=== PATIENT | male | born 1955 | race Caucasian/White ===

== ENCOUNTER 2021-11-30 12:28 | Emergency (ER) | payer MEDICARE ==
[2021-11-30] MEDS ORDERED: Midazolam HCl 2 mg/2 ml Vial ONE (14:42)
== END 2021-11-30 17:23 ==
LOC: ERS 12:28
DX: R33.9 Retention of urine, unspecified (principal); I10 Essential (primary) hypertension; F17.210 Nicotine dependence, cigarettes, uncomplicated
CPT/HCPCS: 51702; 96374; J2250

== ENCOUNTER 2022-11-05 08:36 | Inpatient (IN) | payer MEDICARE ==
[2022-11-05] MEDS ORDERED: Iopamidol-370 76% 500 ML 1 ML ONE (08:40)
[2022-11-05] MEDS ORDERED: Ipratropium/Albuterol 3 ML NEB ONE ×2 (08:47→14:26)
[2022-11-05 08:59] LABS: #Basophils 0.1 thou/uL (0.0-0.2); #Eosinphils 1.2 thou/uL (0.0-0.7); #Lymphocytes 1.3 thou/uL (1.20-3.40); #Monocytes 0.6 thou/uL (0.11-0.59); #Neutrophils 7.5 thou/uL (1.40-6.50); %Basophils 0.5 % (0.0-1.0); %Eosinophils 10.8 % (0.0-10.0); %Lymphocytes 12.5 % (21.0-51.0); %Neutrophils 70.2 % (42.0-75.0); Hemoglobin 16.2 g/dL (14.0-18.0); Mean Corpuscular HGB CONC 32.4 g/dL (32.0-36.0); Mean Corpuscular Hemoglobin 30.2 pg (27.0-31.0); Mean Platelet Volume 6.6 fL (7.4-10.4); Platelet Count 203 10x3/uL (130-400); RBC Distribution Width 12.9 % (11.5-14.5); Red Blood Cell (RBC) Count 5.35 mill/uL (4.70-6.10); White Blood Cell (WBC) Count 10.7 10x3/uL (4.8-10.8)
[2022-11-05] MEDS ORDERED: methylPREDNISolone Sod Succ/PF 125 MG/2 ML VIAL ONE (09:06)
[2022-11-05 09:09] LABS: INR-International Normal Ratio 0.9; Prothrombin Time 12.6 sec (12.0-14.7)
[2022-11-05 09:10] LABS: PTT 34.2 sec (22.9-36.1)
[2022-11-05 09:20] LABS: ALT (SGPT) 16 U/L (8-55); AST (SGOT) 20 U/L (5-34); Albumin 4.7 g/dL (3.4-4.8); Alkaline Phosphatase 131 U/L (40-110); Anion Gap 16 mmol/L (10-20); BUN (Urea Nitrogen) 20 mg/dL (8.4-25.7); Bilirubin, Total 1.4 mg/dL (0.2-1.2); Calc. Creatinine Clearance 0 mL/min (70-130); Calcium 9.8 mg/dL (7.8-10.44); Carbon Dioxide 25 mmol/L (23-31); Chloride 103 mmol/L (98-107); Estimated GFR 49; Globulin 3.9 g/dL (2.4-3.5); Glucose 113 mg/dL (80-115); Potassium 4.7 mmol/L (3.5-5.1); Protein, Total 8.6 g/dL (5.8-8.1); Sodium 139 mmol/L (136-145)
[2022-11-05 10:02] LABS: SARS-CoV-2 NAA Rapid Test Not Detected (NotDetected)
[2022-11-05] MEDS ORDERED: Acetaminophen 325 MG TAB PO PRN (15:09)
[2022-11-05] MEDS ORDERED: Ondansetron ODT 4 MG TAB PO PRN (15:09)
[2022-11-05] MEDS ORDERED: Ipratropium/Albuterol 3 ML NEB NEB PRN (15:18)
[2022-11-05] MEDS ORDERED: Azithromycin 250 MG TAB PO SCH (16:30)
[2022-11-05 17:45] VITALS: BMI 33.9
[2022-11-05] MEDS ORDERED: cefTRIAXone\\ROCEPHIN 1 GM in Sodium Chloride 0.9% 100 ML IVPB SCH (18:00)
[2022-11-05] MEDS: Nicotine 14 MG PATCH TD SCH (18:29)
[2022-11-05] MEDS: Ipratropium/Albuterol 3 ML NEB NEB SCH ×2 (19:06→22:29)
[2022-11-06] MEDS: Ipratropium/Albuterol 3 ML NEB NEB SCH ×6 (02:10→23:15)
[2022-11-06 07:37] LABS: ALT (SGPT) 12 U/L (8-55); AST (SGOT) 14 U/L (5-34); Albumin 3.6 g/dL (3.4-4.8); Alkaline Phosphatase 101 U/L (40-110); Anion Gap 13 mmol/L (10-20); BUN (Urea Nitrogen) 35 mg/dL (8.4-25.7); Bilirubin, Total 0.5 mg/dL (0.2-1.2); Calc. Creatinine Clearance 66 mL/min (70-130); Calcium 9.4 mg/dL (7.8-10.44); Carbon Dioxide 22 mmol/L (23-31); Chloride 106 mmol/L (98-107); Estimated GFR 43; Glucose 112 mg/dL (80-115); Potassium 5.1 mmol/L (3.5-5.1); Protein, Total 6.6 g/dL (5.8-8.1); Sodium 136 mmol/L (136-145)
[2022-11-06 07:47] LABS: #Lymphocytes 0.8 thou/uL (1.20-3.40); #Monocytes 0.9 thou/uL (0.11-0.59); %Basophils 0.1 % (0.0-1.0); %Eosinophils 0.1 % (0.0-10.0); %Lymphocytes 7.8 % (21.0-51.0); %Monocytes 8.4 % (0.0-10.0); %Neutrophils 83.5 % (42.0-75.0); Hemoglobin 13.7 g/dL (14.0-18.0); Mean Corpuscular Hemoglobin 29.3 pg (27.0-31.0); Mean Corpuscular Volume 94.4 fl (78.0-98.0); Mean Platelet Volume 7.1 fL (7.4-10.4); Platelet Count 181 10x3/uL (130-400); RBC Distribution Width 12.8 % (11.5-14.5); Red Blood Cell (RBC) Count 4.66 mill/uL (4.70-6.10); White Blood Cell (WBC) Count 10.8 10x3/uL (4.8-10.8)
[2022-11-06] MEDS: Azithromycin 250 MG TAB PO SCH (08:29)
[2022-11-06] MEDS: Tamsulosin HCl 0.4 MG CAP PO SCH (08:29)
[2022-11-06] MEDS: predniSONE 20 MG TAB PO SCH (08:29)
[2022-11-06] MEDS ORDERED: Amlodipine 10 MG TAB PO SCH (09:00)
[2022-11-06] MEDS ORDERED: Losartan 25 MG TAB PO SCH (09:00)
[2022-11-06] MEDS ORDERED: guaiFENesin 200 MG TAB PO PRN ×2 (11:10→11:24)
[2022-11-06] MEDS ORDERED: Lactated Ringer's 1,000 ML IV SCH (11:30)
[2022-11-06] MEDS: Nicotine 14 MG PATCH TD SCH (16:21)
[2022-11-07] MEDS: Ipratropium/Albuterol 3 ML NEB NEB SCH ×4 (06:22→23:46)
[2022-11-07 06:43] LABS: #Eosinphils 0.2 thou/uL (0.0-0.7); #Lymphocytes 1.6 thou/uL (1.20-3.40); #Monocytes 0.8 thou/uL (0.11-0.59); #Neutrophils 7.3 thou/uL (1.40-6.50); %Basophils 0.1 % (0.0-1.0); %Eosinophils 2.3 % (0.0-10.0); %Lymphocytes 16.2 % (21.0-51.0); %Monocytes 7.8 % (0.0-10.0); %Neutrophils 73.7 % (42.0-75.0); Hemoglobin 13.7 g/dL (14.0-18.0); Mean Corpuscular HGB CONC 31.5 g/dL (32.0-36.0); Mean Corpuscular Hemoglobin 29.5 pg (27.0-31.0); Mean Corpuscular Volume 93.7 fl (78.0-98.0); Mean Platelet Volume 7.1 fL (7.4-10.4); Platelet Count 178 10x3/uL (130-400); RBC Distribution Width 13.1 % (11.5-14.5); Red Blood Cell (RBC) Count 4.64 mill/uL (4.70-6.10)
[2022-11-07 07:09] LABS: ALT (SGPT) 15 U/L (8-55); AST (SGOT) 15 U/L (5-34); Albumin 3.6 g/dL (3.4-4.8); Alkaline Phosphatase 89 U/L (40-110); Anion Gap 12 mmol/L (10-20); BUN (Urea Nitrogen) 42 mg/dL (8.4-25.7); Bilirubin, Total 0.5 mg/dL (0.2-1.2); Calc. Creatinine Clearance 69 mL/min (70-130); Calcium 9.1 mg/dL (7.8-10.44); Carbon Dioxide 24 mmol/L (23-31); Chloride 108 mmol/L (98-107); Estimated GFR 45; Glucose 102 mg/dL (80-115); Potassium 4.3 mmol/L (3.5-5.1); Protein, Total 6.6 g/dL (5.8-8.1); Sodium 140 mmol/L (136-145)
[2022-11-07] MEDS: Azithromycin 250 MG TAB PO SCH (07:55)
[2022-11-07] MEDS: Tamsulosin HCl 0.4 MG CAP PO SCH (07:55)
[2022-11-07] MEDS: predniSONE 20 MG TAB PO SCH (07:55)
[2022-11-07] MEDS ORDERED: Ipratropium/Albuterol 3 ML NEB NEB SCH ×2 (12:19→12:30)
[2022-11-07] MEDS: Nicotine 14 MG PATCH TD SCH (16:08)
[2022-11-08] MEDS: Ipratropium/Albuterol 3 ML NEB NEB SCH ×3 (03:42→09:47)
[2022-11-08 06:53] LABS: #Eosinphils 0.6 thou/uL (0.0-0.7); #Lymphocytes 1.9 thou/uL (1.20-3.40); #Monocytes 0.8 thou/uL (0.11-0.59); #Neutrophils 5.3 thou/uL (1.40-6.50); %Basophils 0.2 % (0.0-1.0); %Eosinophils 6.5 % (0.0-10.0); %Lymphocytes 21.8 % (21.0-51.0); %Monocytes 9.4 % (0.0-10.0); %Neutrophils 62.1 % (42.0-75.0); Hemoglobin 13.6 g/dL (14.0-18.0); Mean Corpuscular HGB CONC 32.4 g/dL (32.0-36.0); Mean Corpuscular Hemoglobin 30.4 pg (27.0-31.0); Mean Corpuscular Volume 93.7 fl (78.0-98.0); Mean Platelet Volume 6.7 fL (7.4-10.4); Platelet Count 172 10x3/uL (130-400); RBC Distribution Width 13.2 % (11.5-14.5); Red Blood Cell (RBC) Count 4.46 mill/uL (4.70-6.10); White Blood Cell (WBC) Count 8.5 10x3/uL (4.8-10.8)
[2022-11-08 07:13] LABS: ALT (SGPT) 16 U/L (8-55); AST (SGOT) 17 U/L (5-34); Albumin 3.6 g/dL (3.4-4.8); Alkaline Phosphatase 86 U/L (40-110); Anion Gap 11 mmol/L (10-20); BUN (Urea Nitrogen) 40 mg/dL (8.4-25.7); Bilirubin, Total 0.5 mg/dL (0.2-1.2); Calc. Creatinine Clearance 75 mL/min (70-130); Calcium 8.9 mg/dL (7.8-10.44); Carbon Dioxide 24 mmol/L (23-31); Chloride 109 mmol/L (98-107); Estimated GFR 50; Globulin 2.7 g/dL (2.4-3.5); Glucose 94 mg/dL (80-115); Protein, Total 6.3 g/dL (5.8-8.1); Sodium 140 mmol/L (136-145)
[2022-11-08] MEDS: Tamsulosin HCl 0.4 MG CAP PO SCH (08:39)
[2022-11-08] MEDS: Azithromycin 250 MG TAB PO SCH (08:39)
[2022-11-08] MEDS: predniSONE 20 MG TAB PO SCH (08:39)
[2022-11-08] MEDS ORDERED: Ipratropium/Albuterol 3 ML NEB NEB SCH (13:00)
[2022-11-08 13:23] VITALS: BP 122/71; TEMP 98.5
== END 2022-11-08 14:24 | disposition home or self-care (01) | DRG 189 ==
LOC: ERS 08:36 → T4-A 17:20
PROVIDERS: ADMIT Family Medicine; ATTEND Family Medicine
DX: J96.01 Acute respiratory failure with hypoxia (principal); Z20.822 Contact with and (suspected) exposure to COVID-19; E78.5 Hyperlipidemia, unspecified; I10 Essential (primary) hypertension; N40.0 Benign prostatic hyperplasia without lower urinary tract symptoms; J43.9 Emphysema, unspecified; I95.9 Hypotension, unspecified; F17.210 Nicotine dependence, cigarettes, uncomplicated; Z88.6 Allergy status to analgesic agent; Z79.899 Other long term (current) drug therapy; Z98.49 Cataract extraction status, unspecified eye; Z90.5 Acquired absence of kidney; Z90.10 Acquired absence of unspecified breast and nipple
CPT/HCPCS: 36415; 71045; 71275; 80053; 83605; 83880; 84145; 84484; 85025; 85610; 85730; 87040; 93005; 94640; 94760; 96360; 96365; 96375; J1956; J2930; J7120; J7512; J7620; Q9967

== ENCOUNTER 2022-11-12 16:49 | Inpatient (IN) | payer MEDICARE ==
[2022-11-12 17:19] LABS: Actual Bicarbonate (HCO3a) 28.3 mEq/L (22-28); Analyzer IN Cardio ER; Base Excess (BEa) 0.4 mEq/L (-2.0 to +3.0); CO2 Tension 59.1 mmHg (35.0-45.0); Calcium, Ionized (arterial) 1.17 mmol/L (1.12-1.30); Carboxyhemoglobin (COHb) 1.4 gm% (0.0-3.0); Hemoglobin (Hb) 15.3 g/dL (14.0-18.0); O2 Tension (PaO2), arterial 70.9 mmHg (> 80.0); Potassium - ABG Lab 4.62 mmol/L (3.70-5.30)
[2022-11-12] MEDS ORDERED: methylPREDNISolone Sod Succ/PF 125 MG/2 ML VIAL ONE (17:19)
[2022-11-12] MEDS ORDERED: Ipratropium/Albuterol 3 ML NEB ONE (17:22)
[2022-11-12 17:25] LABS: ALV-art Gradient 54.865 mmHg (0-20); Puncture Site LRA
[2022-11-12 18:16] LABS: #Eosinphils 1.2 thou/uL (0.0-0.7); #Lymphocytes 1.2 thou/uL (1.20-3.40); #Monocytes 0.5 thou/uL (0.11-0.59); #Neutrophils 8.2 thou/uL (1.40-6.50); %Basophils 0.4 % (0.0-1.0); %Eosinophils 10.3 % (0.0-10.0); %Lymphocytes 10.9 % (21.0-51.0); %Monocytes 4.8 % (0.0-10.0); %Neutrophils 73.6 % (42.0-75.0); Hemoglobin 14.3 g/dL (14.0-18.0); Mean Corpuscular HGB CONC 31.4 g/dL (32.0-36.0); Mean Corpuscular Hemoglobin 30.1 pg (27.0-31.0); Mean Corpuscular Volume 95.9 fl (78.0-98.0); Mean Platelet Volume 6.6 fL (7.4-10.4); Platelet Count 206 10x3/uL (130-400); RBC Distribution Width 13.1 % (11.5-14.5); Red Blood Cell (RBC) Count 4.76 mill/uL (4.70-6.10); White Blood Cell (WBC) Count 11.2 10x3/uL (4.8-10.8)
[2022-11-12 18:34] LABS: ALT (SGPT) 33 U/L (8-55); AST (SGOT) 18 U/L (5-34); Alkaline Phosphatase 107 U/L (40-110); Anion Gap 12 mmol/L (10-20); BUN (Urea Nitrogen) 19 mg/dL (8.4-25.7); Bilirubin, Total 0.8 mg/dL (0.2-1.2); Calc. Creatinine Clearance 0 mL/min (70-130); Calcium 8.9 mg/dL (7.8-10.44); Carbon Dioxide 27 mmol/L (23-31); Chloride 105 mmol/L (98-107); Estimated GFR 53; Glucose 119 mg/dL (80-115); Potassium 4.8 mmol/L (3.5-5.1); Sodium 139 mmol/L (136-145)
[2022-11-12] MEDS ORDERED: Ipratropium/Albuterol 3 ML NEB NEB PRN ×2 (19:46→20:10)
[2022-11-12] MEDS ORDERED: Albuterol 2.5 MG/0.5 ML NEB ONE ×2 (19:54)
[2022-11-12 21:07] LABS: SARS-CoV-2 NAA Rapid Test Not Detected (NotDetected)
[2022-11-13] MEDS: Ipratropium/Albuterol 3 ML NEB NEB SCH ×7 (00:17→23:19)
[2022-11-13 00:21] VITALS: BMI 35.6
[2022-11-13] MEDS: Famotidine 20 MG TAB PO SCH ×3 (00:41→19:35)
[2022-11-13] MEDS: Amoxicillin/Potassium Clav 875 MG TAB PO SCH ×3 (00:41→19:36)
[2022-11-13] MEDS ORDERED: Ipratropium/Albuterol 3 ML NEB NEB SCH (01:00)
[2022-11-13 04:09] LABS: #Lymphocytes 0.5 thou/uL (1.20-3.40); #Monocytes 0.1 thou/uL (0.11-0.59); #Neutrophils 8.4 thou/uL (1.40-6.50); %Basophils 0.4 % (0.0-1.0); %Eosinophils 0.3 % (0.0-10.0); %Lymphocytes 5.9 % (21.0-51.0); %Neutrophils 92.5 % (42.0-75.0); Hemoglobin 14.2 g/dL (14.0-18.0); Mean Corpuscular HGB CONC 31.9 g/dL (32.0-36.0); Mean Corpuscular Hemoglobin 30.2 pg (27.0-31.0); Mean Corpuscular Volume 94.8 fl (78.0-98.0); Mean Platelet Volume 6.8 fL (7.4-10.4); Platelet Count 194 10x3/uL (130-400); RBC Distribution Width 13.1 % (11.5-14.5); Red Blood Cell (RBC) Count 4.71 mill/uL (4.70-6.10); White Blood Cell (WBC) Count 9.1 10x3/uL (4.8-10.8)
[2022-11-13 04:31] LABS: ALT (SGPT) 31 U/L (8-55); AST (SGOT) 19 U/L (5-34); Albumin 3.5 g/dL (3.4-4.8); Alkaline Phosphatase 96 U/L (40-110); Anion Gap 13 mmol/L (10-20); BUN (Urea Nitrogen) 21 mg/dL (8.4-25.7); Bilirubin, Total 0.7 mg/dL (0.2-1.2); Calc. Creatinine Clearance 88 mL/min (70-130); Carbon Dioxide 25 mmol/L (23-31); Chloride 104 mmol/L (98-107); Estimated GFR 57; Globulin 3.1 g/dL (2.4-3.5); Glucose 155 mg/dL (80-115); Potassium 5.3 mmol/L (3.5-5.1); Protein, Total 6.6 g/dL (5.8-8.1); Sodium 137 mmol/L (136-145)
[2022-11-13] MEDS: Tamsulosin HCl 0.4 MG CAP PO SCH (08:48)
[2022-11-13] MEDS: predniSONE 20 MG TAB PO SCH (08:49)
[2022-11-13] MEDS: Amlodipine 10 MG TAB PO SCH (08:49)
[2022-11-13] MEDS: Atorvastatin Calcium 10 MG TAB PO SCH (08:49)
[2022-11-13] MEDS ORDERED: Atorvastatin Calcium 10 MG TAB PO SCH (09:00)
[2022-11-13] MEDS: Mometasone 100 MCG/Formoterol 5 MCG 120 PUFF INHALER INH SCH (19:43)
[2022-11-14] MEDS: Ipratropium/Albuterol 3 ML NEB NEB SCH ×6 (03:13→23:31)
[2022-11-14] MEDS: Mometasone 100 MCG/Formoterol 5 MCG 120 PUFF INHALER INH SCH ×2 (07:27→19:32)
[2022-11-14] MEDS: Tamsulosin HCl 0.4 MG CAP PO SCH (08:58)
[2022-11-14] MEDS: Famotidine 20 MG TAB PO SCH ×2 (08:58→20:34)
[2022-11-14] MEDS: predniSONE 20 MG TAB PO SCH (08:58)
[2022-11-14] MEDS: Atorvastatin Calcium 10 MG TAB PO SCH (08:58)
[2022-11-14] MEDS: Amlodipine 10 MG TAB PO SCH (08:58)
[2022-11-14] MEDS: Amoxicillin/Potassium Clav 875 MG TAB PO SCH ×2 (08:58→20:34)
[2022-11-15] MEDS: Ipratropium/Albuterol 3 ML NEB NEB SCH (03:08)
[2022-11-15] MEDS ORDERED: Ipratropium/Albuterol 3 ML NEB NEB SCH ×3 (07:00→13:00)
[2022-11-15 07:48] LABS: Anion Gap 13 mmol/L (10-20); BUN (Urea Nitrogen) 30 mg/dL (8.4-25.7); Calc. Creatinine Clearance 84 mL/min (70-130); Calcium 8.6 mg/dL (7.8-10.44); Carbon Dioxide 27 mmol/L (23-31); Chloride 102 mmol/L (98-107); Estimated GFR 54; Glucose 94 mg/dL (80-115); Potassium 4.2 mmol/L (3.5-5.1); Sodium 138 mmol/L (136-145)
[2022-11-15 08:19] VITALS: BP 135/71; TEMP 98.5
[2022-11-15] MEDS: Famotidine 20 MG TAB PO SCH (10:44)
[2022-11-15] MEDS: predniSONE 20 MG TAB PO SCH (10:44)
[2022-11-15] MEDS: Atorvastatin Calcium 10 MG TAB PO SCH (10:44)
[2022-11-15] MEDS: Amlodipine 10 MG TAB PO SCH (10:44)
[2022-11-15] MEDS: Amoxicillin/Potassium Clav 875 MG TAB PO SCH (10:44)
[2022-11-15] MEDS: Tamsulosin HCl 0.4 MG CAP PO SCH (10:45)
[2022-11-15] MEDS: Mometasone 100 MCG/Formoterol 5 MCG 120 PUFF INHALER INH SCH (11:25)
[2022-11-16] MEDS ORDERED: FLU VACC QS2022-23(65YR UP)/PF 240 MCG/0.7 ML SYRINGE IM ONE (09:00)
== END 2022-11-15 12:59 | disposition home or self-care (01) | DRG 189 ==
LOC: ERS 16:49 → IMCU/EMU 19:56 → T4-A 11-14 15:01
PROVIDERS: ADMIT Student in an Organized Health Care Education/Training Program; ATTEND Student in an Organized Health Care Education/Training Program
PROC: 5A09357 Assistance with Respiratory Ventilation, Less than 24 Consecutive Hours, Continuous Positive Airway Pressure (ICD-10-PCS; principal; 2022-11-12)
PROC: 4A133R1 Monitoring of Arterial Saturation, Peripheral, Percutaneous Approach (ICD-10-PCS; 2022-11-12)
DX: J96.01 Acute respiratory failure with hypoxia (principal); E87.29 Other acidosis; J44.1 Chronic obstructive pulmonary disease with (acute) exacerbation; J96.02 Acute respiratory failure with hypercapnia; E78.5 Hyperlipidemia, unspecified; F17.210 Nicotine dependence, cigarettes, uncomplicated; E66.9 Obesity, unspecified; N18.31 Chronic kidney disease, stage 3a; D72.829 Elevated white blood cell count, unspecified; R73.9 Hyperglycemia, unspecified; N40.0 Benign prostatic hyperplasia without lower urinary tract symptoms; I73.9 Peripheral vascular disease, unspecified; I70.0 Atherosclerosis of aorta; I12.9 Hypertensive chronic kidney disease with stage 1 through stage 4 chronic kidney disease, or unspecified chronic kidney disease; G47.33 Obstructive sleep apnea (adult) (pediatric); Z20.822 Contact with and (suspected) exposure to COVID-19; Z88.8 Allergy status to other drugs, medicaments and biological substances; Z79.899 Other long term (current) drug therapy; Z98.890 Other specified postprocedural states; Z98.49 Cataract extraction status, unspecified eye; Z68.35 Body mass index [BMI] 35.0-35.9, adult
CPT/HCPCS: 36415; 36600; 71045; 80048; 80053; 82805; 83880; 84145; 84484; 85025; 86140; 87633; 93005; 93306; 94640; 94660; 94664; 96374; J1650; J2930; J7512; J7611; J7620; U0002

== ENCOUNTER 2023-01-11 10:09 | Outpatient (CLI) | payer MEDICARE | END 2023-01-11 10:10 | disposition home or self-care (01) | LOC: ULT 10:09 | PROVIDERS: ATTEND Internal Medicine Nephrology | DX: N18.30 Chronic kidney disease, stage 3 unspecified (principal) | CPT/HCPCS: 76770 ==

== ENCOUNTER 2024-01-26 12:00 | Inpatient (IN) | payer MEDICARE ==
[~2024-01-26 12:00] MED LIST: Iopamidol-370 76% 500 ML MDV (1 ML CHARGE) ONE
[2024-01-26 13:39] LABS: #Basophils 0.03 10x3/uL (0.0-0.2); %Basophils 0.3 % (0.0-1.0); %Eosinophils 2.5 % (0.0-10.0); %Monocytes 4.6 % (0.0-10.0); %Neutrophils 83.3 % (42.0-75.0); Hemoglobin 13.8 g/dL (14.0-18.0); Mean Corpuscular HGB CONC 33.7 g/dL (32.0-36.0); Mean Corpuscular Hemoglobin 28.5 pg (27.0-31.0); Mean Corpuscular Volume 84.5 fL (78.0-98.0); Mean Platelet Volume 8.7 fL (7.4-10.4); Platelet Count 267 10x3/uL (130-400); RBC Distribution Width 12.5 % (11.5-14.5); Red Blood Cell (RBC) Count 4.85 mill/uL (4.70-6.10)
[2024-01-26 13:42] LABS: ALT (SGPT) 17 U/L (8-55); AST (SGOT) 20 U/L (5-34); Albumin 3.9 g/dL (3.4-4.8); Alkaline Phosphatase 113 U/L (40-110); Anion Gap 14 mmol/L (10-20); BUN (Urea Nitrogen) 11 mg/dL (8.4-25.7); Bilirubin, Total 1.2 mg/dL (0.2-1.2); Calc. Creatinine Clearance 0 mL/min (70-130); Calcium 9.7 mg/dL (7.8-10.44); Carbon Dioxide 26 mmol/L (23-31); Chloride 99 mmol/L (98-107); Estimated GFR 53; Globulin 3.6 g/dL (2.4-3.5); Glucose 113 mg/dL (80-115); Potassium 4.2 mmol/L (3.5-5.1); Protein, Total 7.5 g/dL (5.8-8.1); Sodium 135 mmol/L (136-145)
[2024-01-26] MEDS ORDERED: Dicyclomine 20 MG/2 ML VIAL ONE (15:23)
[2024-01-26] MEDS ORDERED: Calcium Carbonate 500 MG ChewTAB PO PRN (15:59)
[2024-01-26] MEDS ORDERED: Promethazine HCl 25 MG/ML VIAL IM PRN (15:59)
[2024-01-26] MEDS ORDERED: Ondansetron PF 4 MG/2 ML Vial IVP PRN (15:59)
[2024-01-26] MEDS ORDERED: Dextrose 50% Abboject 50 ML SYRINGE SLOW IVP PRN (15:59)
[2024-01-26] MEDS ORDERED: hydrALAZINE 20 MG/ML VIAL SLOW IVP PRN (15:59)
[2024-01-26] MEDS ORDERED: Ipratropium/Albuterol 3 ML NEB NEB PRN (15:59)
[2024-01-26] MEDS ORDERED: Morphine 2 MG/ML VIAL SLOW IVP PRN (15:59)
[2024-01-26] MEDS ORDERED: Glucagon 1 MG/ML KIT IM PRN (15:59)
[2024-01-26] MEDS ORDERED: Acetaminophen 325 MG TAB PO PRN (15:59)
[2024-01-26] MEDS ORDERED: Dextrose 5% in Water 1,000 ML IV PRN (15:59)
[2024-01-26] MEDS ORDERED: Mag-Al 1200 mg/1200 mg/30 ML UDCUP PO PRN (15:59)
[2024-01-26] MEDS ORDERED: HYDROcodone/Acetaminophen 10/325 mg Tablet PO PRN (15:59)
[2024-01-26] MEDS ORDERED: fentaNYL 50 mcg/mL 1 mL Vial ONE (16:04)
[2024-01-26] MEDS ORDERED: Piperacillin/Tazobactam 3.375 GM VIAL ONE (16:06)
[2024-01-26] MEDS ORDERED: Sodium Chloride 0.9% 100 ML ONE (16:06)
[2024-01-26 17:40] VITALS: BMI 35.2
[2024-01-26] MEDS: traMADol HCl 50 MG TAB PO PRN (18:18)
[2024-01-26] MEDS: Lactated Ringer's 1,000 ML IV SCH (20:36)
[2024-01-26] MEDS: Ciprofloxacin 500 MG TAB PO SCH (20:37)
[2024-01-26] MEDS: Senokot S 8.6-50 MG TAB PO SCH (20:37)
[2024-01-27 05:17] LABS: #Basophils 0.03 10x3/uL (0.0-0.2); %Basophils 0.3 % (0.0-1.0); %Eosinophils 1.9 % (0.0-10.0); %Lymphocytes 11.7 % (21.0-51.0); %Monocytes 8.2 % (0.0-10.0); %Neutrophils 77.6 % (42.0-75.0); Hematocrit 38.2 % (42.0-52.0); Hemoglobin 12.7 g/dL (14.0-18.0); Mean Corpuscular HGB CONC 33.2 g/dL (32.0-36.0); Mean Corpuscular Hemoglobin 29.3 pg (27.0-31.0); Mean Corpuscular Volume 88.2 fL (78.0-98.0); Mean Platelet Volume 8.9 fL (7.4-10.4); Platelet Count 247 10x3/uL (130-400); RBC Distribution Width 12.7 % (11.5-14.5); Red Blood Cell (RBC) Count 4.33 mill/uL (4.70-6.10)
[2024-01-27 05:51] LABS: ALT (SGPT) 12 U/L (8-55); AST (SGOT) 16 U/L (5-34); Alkaline Phosphatase 93 U/L (40-110); Anion Gap 13 mmol/L (10-20); BUN (Urea Nitrogen) 12 mg/dL (8.4-25.7); Bilirubin, Total 1.4 mg/dL (0.2-1.2); Calc. Creatinine Clearance 75 mL/min (70-130); Calcium 8.9 mg/dL (7.8-10.44); Carbon Dioxide 24 mmol/L (23-31); Chloride 103 mmol/L (98-107); Estimated GFR 50; Globulin 3.1 g/dL (2.4-3.5); Glucose 117 mg/dL (80-115); Potassium 3.9 mmol/L (3.5-5.1); Protein, Total 6.1 g/dL (5.8-8.1); Sodium 136 mmol/L (136-145)
[2024-01-27] MEDS ORDERED: Bupivacaine 0.25% HCL 30 ML VIAL ONE (09:34)
[2024-01-27] MEDS ORDERED: EPINEPHrine 1 MG/ML VIAL ONE (09:34)
[2024-01-27] MEDS ORDERED: PROPOFOL 20 ML ONE (10:03)
[2024-01-27] MEDS ORDERED: Rocuronium Bromide 10 MG/ML (10ML VIAL) ONE (10:03)
[2024-01-27] MEDS ORDERED: fentaNYL PF 100 MCG/2 ML SYRINGE ONE ×2 (10:03→12:14)
[2024-01-27] MEDS ORDERED: Lidocaine 1% PF 5 ML VIAL ONE (10:03)
[2024-01-27] MEDS ORDERED: Midazolam HCl 2 mg/2 ml Vial ONE (10:03)
[2024-01-27] MEDS ORDERED: Piperacillin/Tazobactam 3.375 GM VIAL ONE (10:09)
[2024-01-27] MEDS ORDERED: Sodium Chloride 0.9% 100 ML ONE (10:09)
[2024-01-27] MEDS ORDERED: Lidocaine 1% MPF 2 ML VIAL ONE (10:10)
[2024-01-27] MEDS ORDERED: Ketamine In 0.9 % NaCl 50 MG/5 ML SYRINGE ONE (10:50)
[2024-01-27] MEDS: Polyethylene Glycol 3350 17 GM Packet PO SCH (10:58)
[2024-01-27] MEDS: Famotidine 20 MG TAB PO SCH (10:58)
[2024-01-27] MEDS: Tamsulosin HCl 0.4 MG CAP PO SCH (10:58)
[2024-01-27] MEDS ORDERED: PHENYLEPHRINE-NS 100 MCG/ML 10 ML SYRINGE ONE (11:19)
[2024-01-27] MEDS ORDERED: Glycopyrrolate 0.2 MG/ML 5 ML SYRINGE ONE (11:35)
[2024-01-27] MEDS ORDERED: NEOSTIGMINE 3 MG/3 ML SYR 3 MG/3 ML SYRINGE ONE (11:35)
[2024-01-28] MEDS ORDERED: Ipratropium/Albuterol 3 ML NEB EZPAP PRN (10:05)
[2024-01-28] MEDS ORDERED: Albuterol 200 PUFF INH INH PRN (10:10)
[2024-01-28 11:00] LABS: ALT (SGPT) 97 U/L (8-55); AST (SGOT) 87 U/L (5-34); Albumin 2.6 g/dL (3.4-4.8); Alkaline Phosphatase 123 U/L (40-110); Anion Gap 11 mmol/L (10-20); BUN (Urea Nitrogen) 13 mg/dL (8.4-25.7); Bilirubin, Total 1.9 mg/dL (0.2-1.2); Calc. Creatinine Clearance 66 mL/min (70-130); Calcium 8.8 mg/dL (7.8-10.44); Carbon Dioxide 28 mmol/L (23-31); Chloride 103 mmol/L (98-107); Estimated GFR 43; Globulin 3.1 g/dL (2.4-3.5); Glucose 112 mg/dL (80-115); Potassium 4.7 mmol/L (3.5-5.1); Protein, Total 5.7 g/dL (5.8-8.1); Sodium 137 mmol/L (136-145)
[2024-01-28] MEDS: Acetaminophen 325 MG TAB PO SCH (11:02)
[2024-01-28] MEDS: Amlodipine 10 MG TAB PO SCH (11:03)
[2024-01-28] MEDS: Sodium Chloride 0.9% 1,000 ML IV SCH (14:04)
[2024-01-28] MEDS: Acetaminophen/Codeine 30-300mg Tablet PO PRN (16:57)
[2024-01-28] MEDS: Mometasone 100 MCG/Formoterol 5 MCG 120 PUFF INHALER INH SCH (19:46)
[2024-01-28] MEDS: Senokot S 8.6-50 MG TAB PO SCH (22:57)
[2024-01-29 05:43] LABS: ALT (SGPT) 67 U/L (8-55); AST (SGOT) 43 U/L (5-34); Albumin 2.5 g/dL (3.4-4.8); Alkaline Phosphatase 112 U/L (40-110); Anion Gap 17 mmol/L (10-20); BUN (Urea Nitrogen) 18 mg/dL (8.4-25.7); Bilirubin, Total 1.7 mg/dL (0.2-1.2); Calc. Creatinine Clearance 57 mL/min (70-130); Calcium 8.6 mg/dL (7.8-10.44); Carbon Dioxide 24 mmol/L (23-31); Chloride 103 mmol/L (98-107); Estimated GFR 36; Globulin 3.3 g/dL (2.4-3.5); Glucose 108 mg/dL (80-115); Potassium 4.7 mmol/L (3.5-5.1); Protein, Total 5.8 g/dL (5.8-8.1); Sodium 139 mmol/L (136-145)
[2024-01-29] MEDS: Magnesium Citrate 300 ML BOT PO SCH (08:29)
[2024-01-29] MEDS: Atorvastatin Calcium 10 MG TAB PO SCH (08:30)
[2024-01-29] MEDS: Acetaminophen/Codeine 30-300mg Tablet PO SCH (08:30)
[2024-01-29] MEDS: Polyethylene Glycol 3350 17 GM Packet PO SCH (08:30)
[2024-01-29] MEDS: Amlodipine 10 MG TAB PO SCH (08:30)
[2024-01-29] MEDS: Lactulose 20 GM (30 mL) UDCUP PO SCH (12:39)
[2024-01-29] MEDS: Ipratropium/Albuterol 3 ML NEB NEB SCH (14:15)
[2024-01-29] MEDS: Bisacodyl 10 MG SUPP PR SCH (14:58)
[2024-01-30] MEDS: Famotidine 20 MG TAB PO SCH (08:33)
[2024-01-30 14:08] LABS: ALT (SGPT) 72 U/L (8-55); AST (SGOT) 49 U/L (5-34); Albumin 2.4 g/dL (3.4-4.8); Alkaline Phosphatase 251 U/L (40-110); Bilirubin, Direct 0.6 mg/dL (0.1-0.3); Bilirubin, Total 1.5 mg/dL (0.2-1.2); Protein, Total 5.6 g/dL (5.8-8.1)
[2024-01-31 07:30] VITALS: BP 119/62; TEMP 98.8
== END 2024-01-31 10:42 | disposition home or self-care (01) | DRG 418 ==
LOC: ERS 12:00 → MSONC 15:59 → OBSVTOIN 01-28 10:04
PROVIDERS: ADMIT Surgery; ATTEND Surgery
PROC: 0FT44ZZ Resection of Gallbladder, Percutaneous Endoscopic Approach (ICD-10-PCS; principal; 2024-01-27)
DX: K80.00 Calculus of gallbladder with acute cholecystitis without obstruction (principal); N39.0 Urinary tract infection, site not specified; E78.5 Hyperlipidemia, unspecified; I25.10 Atherosclerotic heart disease of native coronary artery without angina pectoris; E66.9 Obesity, unspecified; J44.9 Chronic obstructive pulmonary disease, unspecified; N40.0 Benign prostatic hyperplasia without lower urinary tract symptoms; G89.18 Other acute postprocedural pain; I12.9 Hypertensive chronic kidney disease with stage 1 through stage 4 chronic kidney disease, or unspecified chronic kidney disease; N18.9 Chronic kidney disease, unspecified; J45.909 Unspecified asthma, uncomplicated; Z68.35 Body mass index [BMI] 35.0-35.9, adult; Z87.891 Personal history of nicotine dependence; Z98.42 Cataract extraction status, left eye; Z98.41 Cataract extraction status, right eye
CPT/HCPCS: 36415; 36416; 71045; 74177; 76705; 78226; 80053; 80076; 82247; 83690; 85025; 88304; 94640; 94664; 96365; 96372; 96375; A9537; C1713; J0171; J0665; J2250; J2543; J2704; J3010; J3490; J7050; J7120; J7620; Q9967

== ENCOUNTER 2024-02-06 21:30 | Emergency (ER) | payer MEDICARE ==
[2024-02-07 00:05] LABS: #Basophils 0.05 10x3/uL (0.0-0.2); %Basophils 0.5 % (0.0-1.0); %Eosinophils 8.5 % (0.0-10.0); %Monocytes 7.7 % (0.0-10.0); Hematocrit 40.8 % (42.0-52.0); Hemoglobin 12.8 g/dL (14.0-18.0); Mean Corpuscular HGB CONC 31.4 g/dL (32.0-36.0); Mean Corpuscular Hemoglobin 28.5 pg (27.0-31.0); Mean Corpuscular Volume 90.9 fL (78.0-98.0); Mean Platelet Volume 8.6 fL (7.4-10.4); Platelet Count 402 10x3/uL (130-400); RBC Distribution Width 12.7 % (11.5-14.5); Red Blood Cell (RBC) Count 4.49 mill/uL (4.70-6.10)
[2024-02-07 00:26] LABS: ALT (SGPT) 23 U/L (8-55); AST (SGOT) 22 U/L (5-34); Albumin 3.2 g/dL (3.4-4.8); Alkaline Phosphatase 178 U/L (40-110); Anion Gap 16 mmol/L (10-20); BUN (Urea Nitrogen) 17 mg/dL (8.4-25.7); Bilirubin, Total 0.8 mg/dL (0.2-1.2); Calc. Creatinine Clearance 0 mL/min (70-130); Calcium 9.4 mg/dL (7.8-10.44); Carbon Dioxide 23 mmol/L (23-31); Chloride 104 mmol/L (98-107); Estimated GFR 46; Globulin 3.9 g/dL (2.4-3.5); Glucose 103 mg/dL (80-115); Protein, Total 7.1 g/dL (5.8-8.1); Sodium 139 mmol/L (136-145)
== END 2024-02-07 02:32 | disposition home or self-care (01) ==
LOC: ERS 21:30
DX: K91.89 Other postprocedural complications and disorders of digestive system (principal); I10 Essential (primary) hypertension; J44.89 Other specified chronic obstructive pulmonary disease; F17.210 Nicotine dependence, cigarettes, uncomplicated
CPT/HCPCS: 36415; 80053; 85025